=== PATIENT | female | born 1975 | race Caucasian/White ===

== ENCOUNTER 2018-08-30 08:20 | Emergency (ER) | payer MEDICAID ==
[~2018-08-30] VITALS: Ht 157.5 cm; Wt 93.2 kg
[~2018-08-30 08:20] MED LIST: GLAT40SY INJ
[2018-08-30 08:21] VITALS: BP 112/77
[2018-08-30] MEDS ORDERED: LIDOCAINE-MPF 1%, 5ML INFIL ONE (09:00)
[2018-08-30] MEDS ORDERED: LIDOCAINE-MPF 1%, 5ML ONE (09:00)
--- NOTE | 2018-08-30 09:03 | NUR ---
Pt sent from for subcutaneous glass to R 4th digit. Pt states last week broke a rinking glass while washing dishes and cut herself. Was able to remove what she thought was all of the glass at that time. Pain returned yesterday. SQ FB confirmed on xray at . Pt NAD at this time.
--- NOTE | 2018-08-30 10:02 | NUR ---
REPORT RECEIVED, CARE ASSUMED
== END 2018-08-30 11:02 | disposition home or self-care (01) ==
LOC: ED 09:30
DX: S61.244A Puncture wound with foreign body of right ring finger without damage to nail, initial encounter (principal); W25.XXXA Contact with sharp glass, initial encounter; Y93.89 Activity, other specified; Y92.89 Other specified places as the place of occurrence of the external cause; Y99.8 Other external cause status
CPT/HCPCS: 10120; 99284